=== PATIENT | male | born 1990 | race Caucasian/White ===

== ENCOUNTER 2017-03-19 20:08 | Emergency (ER) | payer MEDICAID, OTHER, SELFPAY ==
[~2017-03-19] VITALS: Ht 182.9 cm; Wt 62.7 kg
[2017-03-19] MEDS ORDERED: TYLE500T78 PO (20:22)
[2017-03-19] MEDS ORDERED: AMOX500C PO (20:22)
[2017-03-19] MEDS ORDERED: NORCOTAB PO (21:41)
[2017-03-19] MEDS ORDERED: NORCO, ANEXSIA 5/325MG TABLET (HYDROcodone/ACETAMINOPHEN) PO ONE (21:45)
[2017-03-19 21:52] VITALS: BP 161/88
== END 2017-03-19 22:00 | disposition home or self-care (01) ==
LOC: M ED 20:08
DX: K08.89 Other specified disorders of teeth and supporting structures (principal); K02.9 Dental caries, unspecified; R68.84 Jaw pain; Z87.891 Personal history of nicotine dependence